=== PATIENT | female | born 1935 | race Caucasian/White ===

== ENCOUNTER → 2016-10-14 10:20 | Outpatient (CLI) | payer MEDICARE ==
[2016-06-24 08:40] VITALS: BMI 16.7
[~2016-10-14 10:20] MED LIST: BAYER CHEWABLE81 MG PO; BREO ELLIPTA 21 EACH; CRESTOR40 MG PO; HYDROCHLOROTHIA25 MG PO; IPRAT-ALBUT 0.5-3 ML UPD; MIRALAX17 GM PO; MOBIC7.5 MG PO; MUCINEX600 MG PO; MULTI-DAY VITAM1 TAB PO; PLAVIX75 MG PO; POTASSIUM99 M1 PO; REQUIP0.25 MG PO; VITAMIN D2000 UNIT PO; ZANTAC300 MG PO
[2016-10-14 12:54] LABS: CALC OSMOLALITY 271 mosm/kg (275-300); CALCIUM 9.7 mg/dL (8.5-10.1); CARBON DIOXIDE 32.2 mmol/L (21.0-32.0); CHLORIDE - SERUM 97 mmol/L (98-107); CHOL - HDL RATIO 2.5 ratio (2.3-4.1); CHOLESTEROL, TOTAL 202 mg/dL (0-200); CREATINE KINASE 56 UL (21-215); CREATININE - SERUM 0.6 mg/dL (0.6-1.3); GLUCOSE 96 mg/dL (74-106); HDL CHOLESTEROL 82 mg/dL (32-96); LDL CHOLESTEROL 108 mg/dL (0-100); LDL-HDL RATIO 1.3 ratio (1.5-3.5); POTASSIUM - SERUM 4.3 mmol/L (3.5-5.1); SODIUM 136 mmol/L (136-145); TRIGLYCERIDE 63 mg/dL (30-200); UREA NITROGEN 13 mg/dL (7-18); eGFR NON AFRICAN AMERICAN > 90 mL/min (90-120)
== END | disposition home or self-care (01) ==
LOC: D.LABREF 10:20
PROVIDERS: Internal Medicine
DX: I50.9 Heart failure, unspecified (principal); I11.9 Hypertensive heart disease without heart failure

== ENCOUNTER → 2016-10-30 11:17 | Outpatient (CLI) | payer MEDICARE ==
[2016-06-24 08:40] VITALS: BMI 16.7
[2016-10-30 14:17] LABS: APPEARANCE HAZY (CLEAR); BACTERIA MODERATE /hpf (NONE SEEN); BILIRUBIN NEGATIVE (NEGATIVE); COLOR YELLOW (YELLOW); EPITHELIAL CELLS 0-5 /hpf (0-5); GLUCOSE NEGATIVE (NEGATIVE); KETONE NEGATIVE (NEGATIVE); LEUKOCYTE ESTERASE 1+ (NEGATIVE); MUCUS <1+ /lpf (NONE SEEN); NITRITE NEGATIVE (NEGATIVE); PROTEIN TRACE mg/dL (NEGATIVE); RED CELLS - URINE 0-5 /hpf (0-5); SPECIFIC GRAVITY 1.015 (1.005-1.020); UROBILINOGEN NORMAL (NORMAL)
== END | disposition home or self-care (01) ==
LOC: D.LABREF 11:17
PROVIDERS: Internal Medicine
DX: I50.9 Heart failure, unspecified (principal); I10 Essential (primary) hypertension